=== PATIENT | female | born 1940 | race Caucasian/White ===

== ENCOUNTER 2016-05-14 11:54 | Emergency (ER) | payer MEDICARE, OTHER ==
[2016-05-14] MEDS ORDERED: ASPIRIN 81 MG TABLET, CHEWABLE PO ONE (12:07)
--- NOTE | 2016-05-14 12:11 | ER Document Report ---
ED Medical Screen (RME) - General Chief Complaint: Chest Pain Stated Complaint: CHEST PAIN Mode of Arrival: Wheelchair Information source: Patient Notes: Patient presents emergency department with complaints of feels like elephant sitting on her chest since 0300 this am. Took 2 ntg without relief, has nitro patch on. Patient has a history of 3 MIs. Patient reports her last MO she coded. Patient also has a Port-A-Cath because she has no pains. Reports she felt clammy symptoms. None TRAVEL OUTSIDE OF THE [place] IN LAST 30 DAYS: No - Related Data Allergies/Adverse Reactions: iodine Allergy (Unknown, Verified 05/14/16 12:08) PARALYSIS Penicillins Allergy (Verified 05/14/16 12:08) RASH CONTRAST DYE Allergy (Uncoded 05/14/16 12:08) Past Medical History - Social History Chew tobacco use (# tins/day): No Frequency of alcohol use: None Drug Abuse: None - Past Medical History Cardiac Medical History: Reports: Hx Coronary Artery Disease, Hx Heart Attack - [place], Hx Hypertension Pulmonary Medical History: Reports: Hx Asthma, Hx Pneumonia Denies: Hx Bronchitis, Hx COPD Neurological Medical History: Denies: Hx Cerebrovascular Accident, Hx Seizures Renal/ Medical History: Denies: Hx Peritoneal Dialysis Musculoskeltal Medical History: Reports Hx Arthritis - RA/Fibramyalgia - Immunizations Hx Diphtheria, Pertussis, Tetanus Vaccination: Yes
--- NOTE | 2016-05-14 12:19 | ER Document Report ---
ED Cardiac - General Chief Complaint: Chest Pain Stated Complaint: CHEST PAIN Mode of Arrival: Wheelchair Notes: The patient is a 75-year-old female, past medical history CAD status post 3 stents, CABG, Crohn's disease with monthly Remicade infusions, presents with her left-sided chest pressure and radiation to her left scapula, which she has had before when she was having a heart attack. She had a stress test 8 days ago in [place] by Dr. Mikel Ayon and it showed evidence for mild reversible anteroapical ischemia. There is also evidence for inferior infarction. The EF was 46% at rest and 30% at stress. The patient applied her nitroglycerin patch , took 324 mg aspirin and her Plavix this morning. She is still having the chest pain. She denies shortness of breath, numbness, tingling, back pain, fevers, hemoptysis, nausea or vomiting. TRAVEL OUTSIDE OF THE [place] IN LAST 30 DAYS: No - Related Data Allergies/Adverse Reactions: iodine Allergy (Unknown, Verified 05/14/16 12:08) PARALYSIS Penicillins Allergy (Verified 05/14/16 12:08) RASH CONTRAST DYE Allergy (Uncoded 05/14/16 12:08) Past Medical History - General Information source: Patient - Social History Smoking Status: Never Smoker Chew tobacco use (# tins/day): No Frequency of alcohol use: None Drug Abuse: None Family History: Reviewed & Not Pertinent - Past Medical History Cardiac Medical History: Reports: Hx Coronary Artery Disease, Hx Heart Attack - [place], Hx Hypertension Pulmonary Medical History: Reports: Hx Asthma, Hx Pneumonia Denies: Hx Bronchitis, Hx COPD Neurological Medical History: Denies: Hx Cerebrovascular Accident, Hx Seizures Renal/ Medical History: Denies: Hx Peritoneal Dialysis Musculoskeltal Medical History: Reports Hx Arthritis - RA/Fibramyalgia - Immunizations Hx Diphtheria, Pertussis, Tetanus Vaccination: Yes Review of Systems - Review of Systems Notes: REVIEW OF SYSTEMS: CONSTITUTIONAL: -fevers, -chills EENT: -eye pain, -difficulty swallowing, -nasal congestion CARDIOVASCULAR: +chest pain, -syncope. RESPIRATORY: -cough, -SOB GASTROINTESTINAL: -abdominal pain, - nausea, -vomiting, -diarrhea GENITOURINARY: -dysuria, -hematuria MUSCULOSKELETAL: -neck pain SKIN: -rash or skin lesions. HEMATOLOGIC: -easy bruising or bleeding. LYMPHATIC: -swollen, enlarged glands. NEUROLOGICAL: -altered mental status or loss of consciousness, -headache, - neurologic symptoms PSYCHIATRIC: -anxiety, -depression. ALL OTHER SYSTEMS REVIEWED AND NEGATIVE. Physical Exam - Vital signs Vitals: Temp Pulse Resp BP Pulse Ox 98.2 F 73 14 105/61 95 05/14/16 12:09 05/14/16 12:09 05/14/16 12:09 05/14/16 12:09 05/14/16 12:09 - Notes Notes: PHYSICAL EXAMINATION: GENERAL: Well-appearing, well-nourished and in no acute distress. HEAD: Atraumatic, normocephalic. EYES: Pupils equal round and reactive to light, extraocular movements intact, sclera anicteric, conjunctiva are normal. ENT: nares patent, oropharynx clear without exudates. Moist mucous membranes. NECK: Normal range of motion, supple without lymphadenopathy LUNGS: Breath sounds clear to auscultation bilaterally and equal. No wheezes rales or rhonchi. HEART: Right-sided chest wall port, Regular rate and rhythm without murmurs ABDOMEN: Soft, nontender, normoactive bowel sounds. No guarding, no rebound. No masses appreciated. EXTREMITIES: Normal range of motion, no pitting or edema. No cyanosis. NEUROLOGICAL: Cranial nerves grossly intact. Normal speech, normal gait. Normal sensory, motor, and reflex exams. PSYCH: Normal mood, normal affect. SKIN: Warm, Dry, normal turgor, no rashes or lesions noted. Course - Re-evaluation Re-evalutation: Patient's HEART score is 6. EKG shows new T-wave inversions in V3. First troponin is negative. Patient's symptoms atypical for aortic dissection at this time. Spoke to Dr. Israel ([facility]) about possible transfer. No beds at [facility]. He recommends increasing the Imdur from 30 mg to 60 mg to help with pain and adding 50 mg metoprolol twice a day to help maximize medical therapy for her chest pain. Patient's BP is 80/50, so will hold off on the meds at this time. Because there are no beds available at [facility] for several days, he is unable to accept at this time. Patient is requesting transfer to [facility]. Spoke to spoke to Dr. Collazo at [facility] and he has accepted the patient at 17:15. - Vital Signs Vital signs: Temp Pulse Resp BP Pulse Ox 98.2 F 73 16 80/57 L 96 05/14/16 12:09 05/14/16 12:09 05/14/16 16:20 05/14/16 16:40 05/14/16 16:40 - Laboratory Result Diagrams: 05/14/16 12:50 05/14/16 12:50 Laboratory results interpreted by me: 05/14/16 05/14/16 12:50 12:50 WBC 11.1 H RDW 15.2 H Chloride 108 H Carbon Dioxide 20 L Total Protein 8.6 H - Diagnostic Test Radiology reviewed: Image reviewed, Reports reviewed Radiology results interpreted by me: CXR: NAD - EKG Interpretation by Me EKG shows normal: Sinus rhythm, Eastover Eastover/QRS: IVCD When compared to previous EKG there are: Changes noted, Other - flipped T-waves now present in V3 Additional EKG results interpreted by me: Inverted T waves in V3-V6. Critical Care Note - Critical Care Note Total time excluding time spent on procedures (mins): 45 Discharge - Discharge Clinical Impression: Chest pain Qualifiers: Chest pain type: unspecified Qualified Code(s): R07.9 - Chest pain, unspecified Condition: Serious Disposition: [facility] Referrals: EL HAGAN PA [Primary Care Provider] - Follow up as needed
[2016-05-14] MEDS ORDERED: ONDANSETRON HCL INJ/PF 4 MG/2 ML SDV IV ONE ×2 (12:33→17:40)
[2016-05-14] MEDS ORDERED: MORPHINE SULFATE 10 MG/ML INJ IV ONE ×3 (12:33→17:46)
[2016-05-14 13:14] LABS: ABSOLUTE EOSINOPHILS # (AUTO) 0.5 10^3/uL (0.0-0.6); ABSOLUTE LYMPHOCYTES (AUTO) 3.7 10^3/uL (0.5-4.7); ABSOLUTE MONOCYTES (AUTO) 1.2 10^3/uL (0.1-1.4); ABSOLUTE NEUT (AUTO) 5.6 10^3/uL (1.7-8.2); BASOPHILS % (AUTO) 0.4 % (0-2); EOSINOPHILS % (AUTO) 4.3 % (0-6); HEMATOCRIT 40.6 % (36.0-47.0); HEMOGLOBIN 13.6 g/dL (12.0-15.5); HGB HCT DIFFERENCE 0.2; LYMPHOCYTES % (AUTO) 33.8 % (13-45); MEAN CORPUSCULAR HEMOGLOBIN 30.3 pg (27.0-33.4); MEAN CORPUSCULAR HGB CONC 33.5 g/dL (32.0-36.0); MEAN CORPUSCULAR VOLUME 91 fl (80-97); MONOCYTES % (AUTO) 10.6 % (3-13); RED BLOOD COUNT 4.48 10^6/uL (3.72-5.28); RED CELL DISTRIBUTION WIDTH 15.2 % (11.5-14.0); SEGMENTED NEUTROPHILS % (AUTO) 50.9 % (42-78); WHITE BLOOD COUNT 11.1 10^3/uL (4.0-10.5)
[2016-05-14 13:20] LABS: PROTHROMBIN TIME 12.8 SEC (11.4-15.4)
[2016-05-14 13:23] LABS: ALANINE AMINOTRANSFERASE 28 U/L (9-52); ALBUMIN 4.2 g/dL (3.5-5.0); ALKALINE PHOSPHATASE 94 U/L (38-126); ANION GAP 15 (5-19); ASPARTATE AMINO TRANSFERASE 20 U/L (14-36); BILIRUBIN,DIRECT 0.4 mg/dL (0.0-0.4); BILIRUBIN,TOTAL 1.2 mg/dL (0.2-1.3); BLOOD UREA NITROGEN 17 mg/dL (7-20); CALCIUM 9.3 mg/dL (8.4-10.2); CARBON DIOXIDE 20 mmol/L (22-30); CHLORIDE 108 mmol/L (98-107); CREATINE KINASE 46 U/L (30-135); CREATININE RESULT 0.79 mg/dL (0.52-1.25); GLUCOSE 101 mg/dL (75-110); POTASSIUM 4.5 mmol/L (3.6-5.0); SODIUM 143.1 mmol/L (137-145); TOTAL PROTEIN 8.6 g/dL (6.3-8.2)
[2016-05-14] MEDS ORDERED: METOCLOPRAMIDE HCL INJ/PF 10 MG/2 ML SDV IV ONE (14:48)
[2016-05-14] MEDS ORDERED: METOPROLOL TARTRATE 50 MG TABLET PO ONE (15:45)
[2016-05-14] MEDS ORDERED: ISOSORBIDE MONONITRATE 60 MG TAB.ER.24H PO ONE (15:45)
[2016-05-14] MEDS ORDERED: NORMAL SALINE 1000 ML 1,000 ML IV ONE (16:34)
--- NOTE | 2016-05-14 17:20 | EKG REPORT ---
SEVERITY:- ABNORMAL ECG - SINUS RHYTHM NONSPECIFIC INTRAVENTRICULAR CONDUCTION DELAY PROBABLE LVH WITH SECONDARY REPOL ABNRM PROBABLE INFERIOR INFARCT, AGE INDETERMINATE : Confirmed by: Stew Camilo MD 14-May-2016 17:20:11
[2016-05-14 18:22] VITALS: BP 109/85
== END 2016-05-14 18:22 | disposition short-term general hospital (02) ==
LOC: ER 11:54
DX: R07.9 Chest pain, unspecified (principal); I10 Essential (primary) hypertension; I25.10 Atherosclerotic heart disease of native coronary artery without angina pectoris; Z95.1 Presence of aortocoronary bypass graft; Z88.0 Allergy status to penicillin; Z79.02 Long term (current) use of antithrombotics/antiplatelets; Z79.82 Long term (current) use of aspirin; I25.2 Old myocardial infarction
CPT/HCPCS: 93005; 36591; 96376; 99291; 96361; 96374; 96375; 36415; 82550; 85025; 85610; 80053; 84484; 71010; 93010; J2765; J2270; J2405; J7030

== ENCOUNTER → 2016-10-19 | Outpatient (CLI) | payer MEDICARE ==
--- NOTE | 2016-10-19 11:20 | RADIOLOGY REPORT (SQ) ---
EXAM DESCRIPTION: CT CHEST WITHOUT COMPLETED DATE/TIME: 10/19/2016 10:25 am REASON FOR STUDY: PERSONAL HX OF OTHER MAL ISAIAH OF BRONCHUS AND LUNG Z85.118 PERSONAL HISTORY OF MAL IGNANT NEOPLASM OF BRONCHUS A COMPARISON: Chest x-ray 05/14/2016 TECHNIQUE: CT scan performed of the chest without intravenous contrast. Images reviewed with lung, soft tissue and bone windows. Reconstructed coronal and sagittal MPR images reviewed. All images st ored on PACS. All CT scanners at this facility use dose modulation, iterative reconstruction, and/or weight based d osing when appropriate to reduce radiation dose to as low as reasonably achievable (ALARA). [facility]: Dose Right [facility]: CareDose [facility]: Dose Right [facility]: Teradose 4D [facility]: [employer] RADIATION DOSE: Up-to-date CT equipment and radiation dose reduction techniques were employed. CTDIv ol: 7.7 mGy. DLP: 275 mGy-cm. mGy. LIMITATIONS: No technical limitations. FINDINGS: LUNGS AND PLEURA: Centrilobular emphysematous changes are prominent in the upper lobes. T here is mild subsegmental atelectasis in the lung bases. There is no infiltrate, effusion, or mass. HILAR AND MEDIASTINAL STRUCTURES: There is no significant mediastinal or hilar adenopathy. HEART AND VASCULAR STRUCTURES: No aneurysm. No pericardial effusion. UPPER ABDOMEN: No significant findings. Limited exam. THYROID AND OTHER SOFT TISSUES: No masses. No adenopathy. BONES: Compression changes in the mid thoracic spine do not appear to be acute. No osseous metastase s are seen. HARDWARE: Sternotomy wires, surgical clips, graft markers, injection port on the right. OTHER: No other significant findings. IMPRESSION: Surgical changes with emphysematous changes as described. There is no evidence of recur rence or metastasis. TECHNICAL DOCUMENTATION: JOB ID: [id number] Quality ID # [id number]: Final reports with documentation of one or more dose reduction techniques (e.g., Au tomated exposure control, adjustment of the mA and/or kV according to patient size, use of iterative reconstruction technique) 2010 [employer]- All Rights Reserved
== END ==
LOC: RAD 10:14
PROVIDERS: ATTEND Internal Medicine Pulmonary Disease
DX: Z85.118 Personal history of other malignant neoplasm of bronchus and lung (principal)
CPT/HCPCS: 71250

== ENCOUNTER → 2016-11-14 | Outpatient (CLI) | payer MEDICARE ==
--- NOTE | 2016-11-14 16:38 | RADIOLOGY REPORT (SQ) ---
EXAM DESCRIPTION: CHEST PA/LATERAL COMPLETED DATE/TIME: 11/14/2016 4:29 pm REASON FOR STUDY: OTHER PNEUMONIA, UNSPECIFIED ORGANISM COMPARISON: 10/19/2016 CT EXAM PARAMETERS: NUMBER OF VIEWS: two views TECHNIQUE: Digital Frontal and Lateral radiographic views of the chest acquired. RADIATION DOSE: NA LIMITATIONS: none FINDINGS: LUNGS AND PLEURA: Chronic changes at the base ease. Hyperinflation. COPD. MEDIASTINUM AND HILAR STRUCTURES: No masses or contour abnormalities. HEART AND VASCULAR STRUCTURES: Heart normal size. No evidence for failure. BONES: Old compression fracture mid thoracic. HARDWARE: Venous access catheter unchanged. OTHER: No other significant finding. IMPRESSION: No acute pulmonary disease. COPD. TECHNICAL DOCUMENTATION: JOB ID: [id number] [employer]- All Rights Reserved
== END ==
LOC: OD 16:13
PROVIDERS: ATTEND Internal Medicine
DX: J18.8 Other pneumonia, unspecified organism (principal)
CPT/HCPCS: 71020

== ENCOUNTER → 2016-11-28 | Outpatient (CLI) | payer MEDICARE, OTHER | LOC: WI 12:53 | PROVIDERS: ATTEND Internal Medicine | DX: Z12.31 Encounter for screening mammogram for malignant neoplasm of breast (principal) | CPT/HCPCS: 77067; G0202 ==

== ENCOUNTER 2017-01-25 12:13 | Emergency (ER) | payer MEDICARE, OTHER ==
[2017-01-25] MEDS ORDERED: NORMAL SALINE 1000 ML 1,000 ML IV ONE (12:14)
--- NOTE | 2017-01-25 12:44 | RADIOLOGY REPORT (SQ) ---
EXAM DESCRIPTION: CHEST SINGLE VIEW COMPLETED DATE/TIME: 01/25/2017 12:37 pm REASON FOR STUDY: sob COMPARISON: 11/14/2016. NUMBER OF VIEWS: One view. TECHNIQUE: Single frontal radiographic view of the chest acquired. LIMITATIONS: None. FINDINGS: LUNGS AND PLEURA: Chronic scarring. No infiltrates, masses or pneumothorax. No pleural ef fusion. Attenuated blood vessels and flattened bandar-diaphragms. MEDIASTINUM AND HILAR STRUCTURES: No masses. Contour normal. HEART AND VASCULAR STRUCTURES: Heart normal in size. Normal vasculature. BONES: No acute findings. HARDWARE: Vascular access port. Sternotomy wires and surgical clips. Hardware in the cervical spine . OTHER: No other significant finding. IMPRESSION: COPD. NO ACUTE RADIOGRAPHIC FINDING IN THE CHEST. TECHNICAL DOCUMENTATION: JOB ID: [id number] [employer]- All Rights Reserved
--- NOTE | 2017-01-25 12:57 | ER Document Report ---
ED General - General Stated Complaint: COUGH Time Seen by Provider: 01/25/17 12:14 Notes: 76-year-old female with significant cardiac disease including prior MIs as well as chronic angina with a nitroglycerin patch presents with 3 days of cough congestion fever shortness of breath and body aches. Constant. Worsening. Today she got very dizzy, EMS found with a blood pressure of 80 and she nearly syncopized when sitting up. They removed her nitroglycerin patch and gave fluids, she arrived hypotensive regardless. She also has history of COPD and reports increasing sputum production. No urinary symptoms but positive incontinence when coughing. Denies chest pain other than pain with coughing in the epigastric region. TRAVEL OUTSIDE OF THE [place] IN LAST 30 DAYS: No - Related Data Allergies/Adverse Reactions: iodine Allergy (Unknown, Verified 01/25/17 13:19) PARALYSIS Penicillins Allergy (Verified 01/25/17 13:19) RASH CONTRAST DYE Allergy (Uncoded 01/25/17 13:19) Home Medications: Current Home Medications Bisoprolol/Hydrochlorothiazide [Bisoprolol-Hctz 5-6.25 mg Tab] 1 tab PO DAILY [History] Clopidogrel Bisulfate [Plavix 75 mg Tablet] 75 mg PO DAILY 01/25/17 [History] Diclofenac Sodium [Voltaren] 1 gm TOP QID 01/25/17 [History] Furosemide [Lasix 40 mg Tablet] 20 mg PO DAILY 01/25/17 [History] Metoprolol Tartrate [Lopressor 25 mg Tablet] 25 mg PO Q12 01/25/17 [History] Prednisone [Deltasone 5 mg Tablet] 5 mg PO DAILY 01/25/17 [History] Past Medical History - Social History Smoking Status: Current Every Day Smoker Family History: Reviewed & Not Pertinent - Past Medical History Cardiac Medical History: Reports: Hx Coronary Artery Disease, Hx Heart Attack, Hx Hypertension Pulmonary Medical History: Reports: Hx Asthma, Hx COPD Denies: Hx Bronchitis, Hx Pneumonia Neurological Medical History: Denies: Hx Cerebrovascular Accident, Hx Seizures Renal/ Medical History: Denies: Hx Peritoneal Dialysis Musculoskeltal Medical History: Reports Hx Arthritis Past Surgical History: Reports: Hx Cardiac Catheterization - Immunizations Hx Diphtheria, Pertussis, Tetanus Vaccination: Yes Review of Systems - Review of Systems Notes: REVIEW OF SYSTEMS GEN: D body aches weakness dizziness chills ENT: Denies sore throat, nasal discharge, ear pain EYES: Denies blurry vision, eye pain, discharge CV: Denies chest pain, palpitations, edema RESP: Shortness of breath GI: Denies abdominal pain, nausea, vomiting, diarrhea MSK: Denies joint pain/swelling, edema, SKIN: Denies rash, skin lesions LYMPH: Denies swollen glands/lymph nodes NEURO: Denies headache, focal weakness or numbness, dizziness PSYCH: Denies depression, suicidal or homicidal ideation PHYSICAL EXAMINATION General: N pale, ill-appearing Head: Atraumatic, normocephalic ENT: Mouth normal, oropharynx moist, no exudates or tonsillar enlargement Eyes: Conjunctiva normal, pupils equal, lids normal Neck: No JVD, supple, no guarding CVS: Normal rate, regular rhythm, no murmurs Resp: N bilateral expiratory wheezing, tachypneic GI: Nondistended, soft, no tenderness to palpation, no rebound or guarding Ext: No deformities, no edema, normal range of motion in upper and lower ext Back: No CVA or midline TTP Skin: No rash, warm Lymphatic: No lymphadeopathy noted Neuro: Awake, alert. Face symmetric. GCS 15. Physical Exam - Vital signs Vitals: Resp Pulse Ox 17 87 L 01/25/17 12:32 01/25/17 12:32 Course - Re-evaluation Re-evalutation: 01/25/17 13:10 Critically ill patient with a history of cardiac disease presents with viral systemic type symptoms as well as cough that is concerning for pneumonia. She is hypotensive even after nitroglycerin is been removed and despite fluids. She does have cardiac disease however her lungs do not have any crackles in her saturation is normal. After a quick glance of the chest x-ray I gave her 1 L of additional fluid. Septic protocol initiated. EKG shows unchanged T-wave inversions. Reassessed around 2 PM. Awaiting urine but there is no pneumonia on chest x- ray. Pressure is coming up with fluids and the patient is feeling slightly better. She is a normal white count. Awaiting urine, she has received Levaquin for fear for sepsis. 01/25/17 14:53 Patient reassessed. Blood pressure in the 110s. Urinalysis shows infection. Likely urosepsis although lactate is normal. Spoke with Dr. Craven by phone. Asked him to admit the patient. He states that he knows this patient and that she would probably rather go home. He requested I speak with her about this. She said she would rather go home but I recommended she be admitted for several reasons including the risk of decompensation from sepsis and the inability to treat her infection as an outpatient. I let Dr. Craven noted the patient would like to go home and he stated he will be to the ER approximately 5 PM to evaluate her, and either admit her or discharge her home himself after a full consult exam and documentation. 01/25/17 17:07 Patient reassessed around 4:30 PM. She is wanting to go home. I asked her to wait for Dr. Craven. Dr. Craven came at 5:00, assist the patient reviewed her results and wrote a note to discharge her home with antibiotics for UTI. - Vital Signs Vital signs: Temp Pulse Resp BP Pulse Ox 13 100/43 L 99 01/25/17 14:04 01/25/17 14:04 01/25/17 16:00 - Laboratory Result Diagrams: 01/25/17 13:06 01/25/17 13:06 Laboratory results interpreted by me: 01/25/17 01/25/17 01/25/17 13:06 13:06 13:06 RDW 14.6 H VBG pH 7.26 L Chloride 108 H BUN 21 H Est GFR ( Amer) 51 L Est GFR (Non-Af Amer) 42 L Calcium 7.9 L Direct Bilirubin 0.5 H Urine Blood Ur Leukocyte Esterase 01/25/17 13:08 RDW VBG pH Chloride BUN Est GFR ( Amer) Est GFR (Non-Af Amer) Calcium Direct Bilirubin Urine Blood SMALL H Ur Leukocyte Esterase TRACE H Critical Care Note - Critical Care Note Total time excluding time spent on procedures (mins): 40 Comments: The above patient is critically ill. Not including procedures, but including direct re-evaluations, speaking with patient and/or consultants, interpreting results, and documenting, I spent the total amount of minute listed listed above on critical care time Discharge - Discharge Clinical Impression: Urinary tract infection Qualifiers: Urinary tract infection type: acute pyelonephritis Qualified Code(s): N10 - Acute pyelonephritis Hypotension Qualifiers: Hypotension type: other hypotension type Qualified Code(s): I95.89 - Other hypotension Condition: Stable Disposition: HOME, SELF-CARE Prescriptions: Levofloxacin [Levaquin 500 mg Tablet] 500 mg PO DAILY #7 tablet Referrals: JALEN CRAVEN [facility]PER[facility] [Primary Care Provider] - Follow up as needed
[2017-01-25] MEDS ORDERED: LEVOFLOXACIN 750 MG/D5W RTU 750 MG/150 ML RTUPB IV SCH (13:00)
[2017-01-25 13:28] LABS: ABSOLUTE BASOPHILS # (AUTO) 0.1 10^3/uL (0.0-0.2); ABSOLUTE EOSINOPHILS # (AUTO) 0.1 10^3/uL (0.0-0.6); ABSOLUTE LYMPHOCYTES (AUTO) 2.9 10^3/uL (0.5-4.7); ABSOLUTE MONOCYTES (AUTO) 0.9 10^3/uL (0.1-1.4); ABSOLUTE NEUT (AUTO) 5.1 10^3/uL (1.7-8.2); BASOPHILS % (AUTO) 0.7 % (0-2); EOSINOPHILS % (AUTO) 1.5 % (0-6); HEMATOCRIT 40.8 % (36.0-47.0); HEMOGLOBIN 13.4 g/dL (12.0-15.5); HGB HCT DIFFERENCE -0.6; LYMPHOCYTES % (AUTO) 31.7 % (13-45); MEAN CORPUSCULAR HEMOGLOBIN 31.3 pg (27.0-33.4); MEAN CORPUSCULAR HGB CONC 32.9 g/dL (32.0-36.0); MEAN CORPUSCULAR VOLUME 95 fl (80-97); MONOCYTES % (AUTO) 9.5 % (3-13); RED BLOOD COUNT 4.29 10^6/uL (3.72-5.28); RED CELL DISTRIBUTION WIDTH 14.6 % (11.5-14.0); SEGMENTED NEUTROPHILS % (AUTO) 56.6 % (42-78); VENOUS BLOOD BASE EXCESS -2.5 mmol/L; VENOUS BLOOD HCO3 25.5 mmol/L (20-32); VENOUS BLOOD PCO2 58.4 mmHg (35-63); VENOUS BLOOD PH 7.26 (7.30-7.42)
[2017-01-25] MEDS ORDERED: CEFTRIAXONE 1 GM/D5W RTU 50 ML IV ONE (13:28)
[2017-01-25] MEDS ORDERED: LEVOFLOXACIN 750 MG/D5W RTU 750 MG/150 ML RTUPB IV ONE (13:30)
[2017-01-25 13:40] LABS: ALANINE AMINOTRANSFERASE 38 U/L (9-52); ALBUMIN 4.1 g/dL (3.5-5.0); ALKALINE PHOSPHATASE 80 U/L (38-126); ANION GAP 14 (5-19); ASPARTATE AMINO TRANSFERASE 31 U/L (14-36); BILIRUBIN,DIRECT 0.5 mg/dL (0.0-0.4); BILIRUBIN,TOTAL 0.9 mg/dL (0.2-1.3); BLOOD UREA NITROGEN 21 mg/dL (7-20); CALCIUM 7.9 mg/dL (8.4-10.2); CARBON DIOXIDE 22 mmol/L (22-30); CHLORIDE 108 mmol/L (98-107); CREATININE RESULT 1.24 mg/dL (0.52-1.25); GLUCOSE 77 mg/dL (75-110); POTASSIUM 4.1 mmol/L (3.6-5.0); SODIUM 143.8 mmol/L (137-145); TOTAL PROTEIN 7.9 g/dL (6.3-8.2)
--- NOTE | 2017-01-25 13:42 | EKG REPORT ---
SEVERITY:- ABNORMAL ECG - SINUS RHYTHM NONSPECIFIC INTRAVENTRICULAR CONDUCTION DELAY NONSPECIFIC T CHANGES INFERIOR AND LAATERAL CHEST LEAD. : Confirmed by: Leo Cristina 25-Jan-2017 13:41:59
[2017-01-25 14:08] LABS: APPEARANCE,URINE SLIGHTLY-CLOUDY; BILIRUBIN,URINE NEGATIVE (NEGATIVE); GLUCOSE, URINE NEGATIVE (NEGATIVE); KETONES,URINE NEGATIVE (NEGATIVE); LEUKOCYTE ESTERASE,URINE TRACE (NEGATIVE); NITRITE,URINE NEGATIVE (NEGATIVE); PROTEIN,URINE NEGATIVE (NEGATIVE); URINE SPECIFIC GRAVITY 1.006; UROBILINOGEN,URINE NEGATIVE mg/dL (<2.0)
[2017-01-25 14:24] LABS: BACTERIA,URINE 3+ /HPF; RBC,URINE 0-1 /HPF
[2017-01-25 18:47] VITALS: BP 110/80
== END 2017-01-25 18:45 | disposition home or self-care (01) ==
LOC: ER 12:13
DX: N10 Acute pyelonephritis (principal); I95.9 Hypotension, unspecified; I25.119 Atherosclerotic heart disease of native coronary artery with unspecified angina pectoris; J44.9 Chronic obstructive pulmonary disease, unspecified; R05 Cough; R06.02 Shortness of breath; I10 Essential (primary) hypertension; I25.2 Old myocardial infarction; R50.9 Fever, unspecified; R32 Unspecified urinary incontinence
CPT/HCPCS: 93005; 36591; 99291; 96361; 96365; 36415; 87040; 87086; 82962; 85025; 87088; 80053; 81001; 87186; 82803; 83605; 87804; 71010; 93010; J7030; J1956

== ENCOUNTER → 2017-07-27 | Outpatient (CLI) | payer MEDICARE, OTHER ==
[2017-07-27 16:20] LABS: ANION GAP 15 (5-19); BLOOD UREA NITROGEN 21 mg/dL (7-20); CALCIUM 10.4 mg/dL (8.4-10.2); CARBON DIOXIDE 21 mmol/L (22-30); CHLORIDE 111 mmol/L (98-107); GLUCOSE 92 mg/dL (75-110); POTASSIUM 4.6 mmol/L (3.6-5.0); SODIUM 146.7 mmol/L (137-145)
== END ==
LOC: OD 15:18
PROVIDERS: ATTEND Physician Assistant
DX: I49.9 Cardiac arrhythmia, unspecified (principal)
CPT/HCPCS: 36415; 80048; 83735

== ENCOUNTER → 2017-09-29 | Outpatient (CLI) | payer MEDICARE, OTHER ==
--- NOTE | 2017-09-29 12:19 | RADIOLOGY REPORT (SQ) ---
EXAM DESCRIPTION: CT CHEST WITHOUT COMPLETED DATE/TIME: 09/29/2017 9:20 am REASON FOR STUDY: PERSONAL HISTORY OF MALIGNANT NEOPLASM OF BRONCHUS AND LUNG Z85.118 PERSONAL HIST ORY OF MALIGNANT NEOPLASM OF BRONCHUS A COMPARISON: Chest x-ray dated January [address] scan dated September 2016 TECHNIQUE: CT scan performed of the chest without intravenous contrast. Images reviewed with lung, soft tissue and bone windows. Reconstructed coronal and sagittal MPR images reviewed. All images st ored on PACS. All CT scanners at this facility use dose modulation, iterative reconstruction, and/or weight based d osing when appropriate to reduce radiation dose to as low as reasonably achievable (ALARA). [facility]: Dose Right [facility]: CareDose [facility]: Dose Right [facility]: Teradose 4D [facility]: [employer] RADIATION DOSE: CT Rad equipment meets quality standard of care and radiation dose reduction techniq ues were employed. CTDIvol: 9.2 - 9.2 mGy. DLP: 385 mGy-cm. mGy. LIMITATIONS: No technical limitations. FINDINGS: LUNGS AND PLEURA: A 10 mm in diameter mass is identified in the left upper lung field best seen on image 20. There are associated ground-glass opacities. Possibility of a primary or recurre nt neoplastic process cannot be excluded. No other discrete masses are identified. Minimal ground-g lass opacities are identified in the left perihilar region. No airspace consolidations or pleural ef fusions are identified. Linear densities are identified in the lung bases most consistent with scarr ing. Previously described emphysematous changes are again identified. PET-CT scan may be of value f or further evaluation. HILAR AND MEDIASTINAL STRUCTURES: No identified masses or abnormal nodes. No obvious aneurysm. HEART AND VASCULAR STRUCTURES: No aneurysm. No pericardial effusion. Coronary artery calcifications are identified. UPPER ABDOMEN: No significant findings. Limited exam. THYROID AND OTHER SOFT TISSUES: No masses. No adenopathy. BONES: Stable findings. Previously described vertebral compression is unchanged. HARDWARE: Patient is status post median sternotomy. Port-A-Cath is seen with its tip at the level of the superior vena cava. OTHER: No other significant findings. IMPRESSION: 10 mm mass in the left upper lung field as noted above. PET-CT scan may be of value for further evaluation. Other findings as noted above TECHNICAL DOCUMENTATION: JOB ID: [id number] Quality ID # [id number]: Final reports with documentation of one or more dose reduction techniques (e.g., Au tomated exposure control, adjustment of the mA and/or kV according to patient size, use of iterative reconstruction technique) 2010 [employer]- All Rights Reserved Reading location - IP/workstation name: [email or web address]
== END ==
LOC: RAD 09:06
PROVIDERS: ATTEND Physician Assistant
DX: Z85.118 Personal history of other malignant neoplasm of bronchus and lung (principal)
CPT/HCPCS: 71250

== ENCOUNTER → 2017-10-08 | Outpatient (CLI) | payer MEDICARE ==
--- NOTE | 2017-10-09 09:54 | RADIOLOGY REPORT (SQ) ---
EXAM DESCRIPTION: PET CT SKULL/THIGH COMPLETED DATE/TIME: 10/08/2017 7:44 pm REASON FOR STUDY: ABNORMAL FINDINGS OF LUNG FIELD LEFT UPPER R91.8 OTHER NONSPECIFIC ABNORMAL FINDI NG OF LUNG FIELD COMPARISON: CT chest 09/29/2017, 10/19/2016 RADIONUCLIDE AND DOSE: 11 mCi F18 FDG The route of agent administration: Intravenous FASTING BLOOD SUGAR: 92 mg/dl CONTRAST TYPE AND DOSE: No CT contrast given. TECHNIQUE: Blood glucose level was verified. Above dose of FDG was injected intravenously. 2-D seg mented attenuation correction images were obtained from the base of the skull to the midthighs. Nonc ontrast CT images were obtained for attenuation correction and fusion with emission images. CT image s were performed without oral or intravenous contrast and are not sensitive for parenchymal lesions. A series of overlapping emission PET images were obtained. Images reviewed and manipulated at [facility] work station by the radiologist. Images stored on PACS. LIMITATIONS: None. FINDINGS: HEAD AND NECK: No areas of abnormal metabolic activity in the soft tissues of the head and neck. CHEST: An ill-defined alveolar density is present in the left upper lobe along the left upper lobe pu lmonary artery and vein on axial image 71. This has SUV of 2.7. Patient is post right lower lobectomy. Lungs are otherwise unremarkable aside from moderate changes of obstructive disease. Patient has a right-sided permanent central line with the tip in the superior vena cava. Markedly in creased activity is present around the right access port in the anterior chest wall with SUV 12.7. T here is also a rind of metabolic activity along the catheter in the right internal jugular vein with SUV 14.6. This is worrisome for infected right permanent central line. ABDOMEN AND PELVIS: No areas of abnormal metabolic activity in the abdomen or pelvis. Expected physi ologic activity is present in the genitourinary system and bowel. PROXIMAL LOWER EXTREMITIES: No areas of abnormal metabolic activity in the soft tissues of the lower extremities. BONES: No abnormal metabolic activity in the visualized skeleton. ADDITIONAL CT FINDINGS: Old cervical fusion plate. Right shoulder replacement. Sternotomy with CAB G. Cardiomegaly. Hysterectomy. OTHER: Liver background activity 2.4 SUV. Blood pool background activity 2.0 SUV IMPRESSION: Ill-defined alveolar opacity along the left upper lobe bronchovascular bundle with SUV 2 .7. This is abnormal but nonspecific and could represent infection/inflammation or tumor. This find ing is new compared to prior CT exam 10/19/2016, and similar compared to CT chest 09/29/2017. Abnormal increased uptake along the right anterior chest wall access port for central line, and incre ased uptake along the jugular portion of the central line, worrisome for infected hardware TECHNICAL DOCUMENTATION: JOB ID: [id number] [employer] All Rights Reserved Reading location - IP/workstation name: [email or web address]
== END ==
LOC: RAD 16:35
PROVIDERS: ATTEND Physician Assistant
DX: R91.8 Other nonspecific abnormal finding of lung field (principal)
CPT/HCPCS: 78815; A9552

== ENCOUNTER 2017-10-09 16:22 | Emergency (ER) | payer MEDICARE, OTHER ==
[2017-10-09 16:38] VITALS: BP 136/79
[2017-10-09] MEDS ORDERED: DOXYCYCLINE HYCLATE 100 MG TABLET PO ONE (18:02)
--- NOTE | 2017-10-09 18:04 | ER Document Report ---
ED Medical Screen (RME) - General Chief Complaint: Skin Problem Stated Complaint: BODY PAIN/COUGH Time Seen by Provider: 10/09/17 17:45 Mode of Arrival: Ambulatory Information source: Patient Notes: This is a 76-year-old female with a history of COPD, Crohn's disease, right lung cancer status post resection (remote), who was recently diagnosed with a left lung mass and is being evaluated for that. Just had a PET scan for evaluation of the left lung mass which showed some uptake around right chest wall access port that suggested the possibility of infection. The patient was referred to the emergency room for an infected line. On review of systems, the patient denies any fever. She denies any pain around the port site, discharge, swelling, redness around the site. She has had a cough but she does have COPD and frequently has a cough. She says the cough has been productive of green mucus for the past week. She denies significant shortness of breath. She has not had any fever. TRAVEL OUTSIDE OF THE [place] IN LAST 30 DAYS: No - HPI Onset: Last week Onset/Duration: Gradual Quality of pain: No pain Severity: None Pain Level: Denies Associated Symptoms: Cough (productive). denies: Chills, Fever, Shortness of breath Exacerbated by: Denies Relieved by: Denies Similar symptoms previously: Yes Recently seen / treated by doctor: Yes - Related Data Smoking: Non-smoker Frequency of alcohol use: None Drug Abuse: None Allergies/Adverse Reactions: iodine Allergy (Unknown, Verified 10/09/17 17:43) PARALYSIS Penicillins Allergy (Verified 10/09/17 17:43) RASH CONTRAST DYE Allergy (Uncoded 10/09/17 17:43) Paralysis Past Medical History - General Information source: Patient - Social History Cigarette use (# per day): No Chew tobacco use (# tins/day): No Frequency of alcohol use: None Drug Abuse: None Lives with: Family Family history: None - Past Medical History Cardiac Medical History: Reports: Hx Coronary Artery Disease, Hx Heart Attack - x3, Hx Hypertension Pulmonary Medical History: Reports: Hx COPD, Hx Pneumonia Denies: Hx Asthma, Hx Bronchitis Neurological Medical History: Denies: Hx Cerebrovascular Accident, Hx Seizures Renal/ Medical History: Denies: Hx Peritoneal Dialysis Musculoskeltal Medical History: Reports Hx Arthritis - RA, OA Past Surgical History: Reports: Hx Cardiac Catheterization - Immunizations Hx Diphtheria, Pertussis, Tetanus Vaccination: No History of Influenza Vaccine for 11/2016 - 04/2017 Season: Yes Influenza Administration Date for 11/2016 - 04/2017 Season: 11/20/17 Review of Systems - Review of Systems Constitutional: denies: Chills, Fever EENT: No symptoms reported Cardiovascular: No symptoms reported Respiratory: See HPI, Cough Gastrointestinal: No symptoms reported Genitourinary: No symptoms reported Female Genitourinary: No symptoms reported Musculoskeletal: No symptoms reported Skin: No symptoms reported Hematologic/Lymphatic: No symptoms reported Neurological/Psychological: No symptoms reported Physical Exam - Vital signs Vitals: Temp Pulse Resp BP Pulse Ox 98.3 F 72 16 136/79 H 96 10/09/17 16:28 10/09/17 16:28 10/09/17 16:28 10/09/17 16:28 10/09/17 16:28 Notes: Physical exam: GENERAL: 76-year-old female, alert and oriented 3, quite pleasant, not short of breath, afebrile. HEAD: Atraumatic, normocephalic. EYES: Pupils equal round and reactive to light, extraocular movements intact, sclera anicteric, conjunctiva are normal. ENT: TMs normal, nares patent, oropharynx clear without exudates. Moist mucous membranes. NECK: Normal range of motion, supple without obvious mass or JVD. LUNGS: Breath sounds clear to auscultation bilaterally and equal. Scattered wheezes Chest wall: Right chest wall, patient has an access port. The site looks great. There is no erythema. There is no pus drainage. There is no warmth or swelling or tenderness around the port. The port can be tracked proximally and its nontender. There is absolutely no signs of infection. HEART: Regular rate and rhythm without murmurs, rubs or gallops. ABDOMEN: Soft, normoactive bowel sounds. No tenderness to palpation. No guarding, no rebound. No masses appreciated. EXTREMITIES: Normal range of motion, no pitting or edema. No clubbing or cyanosis. NEUROLOGICAL: Cranial nerves II through XII grossly intact. Normal speech, moving all extremities. PSYCH: Normal mood, normal affect. SKIN: Warm, Dry, normal turgor, no rashes or lesions noted. Course - Re-evaluation Re-evalutation: 10/09/17 18:04 Note: I reviewed the PET scan results and discussed the findings on PET scan as well as the clinical findings of the patient with Dr. Starkey who is the general surgeon conduit helper. He basically said that PET scan will frequently light up a fibrin sheath around indwelling catheters and it does not necessarily mean infection. In the absence of clinical stigmata of infection, he recommends watchful waiting but to leave the line in place. I happen to agree given how good the patient looks and given the absence of any signs of infection. I have discussed the issues with the patient and she is quite happy just following and returning if she develops any problems. I have advised her to return for pain around the line site, redness, swelling or any fevers. I did try and make contact with Dr. Gold's office: I been told by the hospital beauty operator apprentice that there is no one conduit helper for the office. I discussed case with Dr. Craven who knows the patient well and he will follow-up with the patient in his office. Now, the patient does have underlying COPD and she has had a cough which is productive of green sputum. She is quite comfortable right now and is not short of breath but given her underlying COPD, I would normally treat her with an antibiotic. I discussed this with her and she is okay starting an antibiotic for bronchitis in the setting of COPD. She was given her first dose of doxycycline in the ER. 10/09/17 18:08 10/09/17 18:19 - Vital Signs Vital signs: Temp Pulse Resp BP Pulse Ox 98.0 F 72 16 136/79 H 96 10/09/17 17:56 10/09/17 16:28 10/09/17 16:28 10/09/17 16:28 10/09/17 16:28 Doctor's Discharge - Discharge Clinical Impression: Bronchitis Condition: Stable Disposition: HOME, SELF-CARE Additional Instructions: As we discussed, return to the emergency room if he starts developing fevers ( temperature greater than 100.4), pain around the line site, redness, swelling or warmth around the line site. In regards to the cough which is productive of green sputum: Start taking the doxycycline as prescribed. You were given her first dose in the emergency room here, you could take the next dose in the morning. Follow-up with Dr. Gold's office as planned at 930 tomorrow morning. Tell them that you were assessed in the emergency room and it was felt that the line was not infected and did not need to come out at this time. You can tell them the case was discussed with Dr. Starkey of general surgery. Prescriptions: Doxycycline Hyclate 100 mg PO BID #20 capsule Referrals: JEAN-CLAUDE WAGNER PA-C [Primary Care Provider] - Follow up tomorrow WALDO CRAVEN MD [ACTIVE STAFF] - Follow up in 3-5 days
== END 2017-10-09 18:06 | disposition home or self-care (01) ==
LOC: ER 16:22
DX: J20.9 Acute bronchitis, unspecified (principal); J44.0 Chronic obstructive pulmonary disease with (acute) lower respiratory infection; R05 Cough; R91.8 Other nonspecific abnormal finding of lung field; I25.10 Atherosclerotic heart disease of native coronary artery without angina pectoris; I10 Essential (primary) hypertension; I25.2 Old myocardial infarction; Z85.118 Personal history of other malignant neoplasm of bronchus and lung; Z90.2 Acquired absence of lung [part of]; Z87.01 Personal history of pneumonia (recurrent); Z88.0 Allergy status to penicillin; Z91.041 Radiographic dye allergy status
CPT/HCPCS: 99283; A9270